=== PATIENT | female | born 1970 | race Caucasian/White ===

== ENCOUNTER → 2021-05-16 | Outpatient (CLI) | payer OTHER | LOC: KOH-I 12:16 | DX: M79.672 Pain in left foot (principal) | CPT/HCPCS: 73630 ==

== ENCOUNTER → 2021-07-05 | Outpatient (CLI) | payer OTHER | LOC: KOH-I 16:00 | DX: S90.452A Superficial foreign body, left great toe, initial encounter (principal) | CPT/HCPCS: 73700 ==

== ENCOUNTER → 2022-05-12 | Outpatient (CLI) | payer OTHER | LOC: MAMO 05-10 10:30 | DX: N63.11 Unspecified lump in the right breast, upper outer quadrant (principal) | CPT/HCPCS: 76642-RT; 77066; G0279 ==